=== PATIENT | male | born 1975 | race African-American/Black ===

== ENCOUNTER 2022-05-24 16:07 | Emergency (ER) | payer OTHER ==
[2022-05-24] MEDS ORDERED: Albuterol/Ipratropium 3.0-0.5 MG/3 ML Neb Soln NEB ONE (18:24)
[2022-05-24] MEDS ORDERED: Dexamethasone 10 MG/ML SDV IVPUSH ONE (18:24)
== END 2022-05-24 20:45 | disposition home or self-care (01) ==
LOC: MW.ED 16:07
DX: R07.89 Other chest pain (principal); J30.2 Other seasonal allergic rhinitis
CPT/HCPCS: 93005; 96374; 99284; J1100; 93010; J7620-GY

== ENCOUNTER 2022-12-12 14:24 | Emergency (ER) | payer SELFPAY ==
[2022-12-12] MEDS ORDERED: Sodium Chloride 0.9% 2.5 ML Syringe FLUSH PRN (17:01)
[2022-12-12] MEDS ORDERED: Sodium Chloride 0.9% 10 ML Syringe FLUSH PRN (17:01)
[2022-12-12] MEDS ORDERED: Sodium Chloride 0.9% 1,000 ML IV ONE (17:03)
[2022-12-12] MEDS ORDERED: Ondansetron 4 MG/2 ML SDV IVPUSH ONE (17:17)
[2022-12-12] MEDS: Morphine 4 MG/ML Syringe IVPUSH PRN ×2 (17:38→18:06)
[2022-12-12 17:41] LABS: CARBON DIOXIDE,CO2 24.1 mmol/L (21.0-32.0); POTASSIUM,K 3.6 mmol/L (3.5-5.1)
[2022-12-12] MEDS ORDERED: Iopamidol 755 MG/ML 500 ML Multipack Bottle IVPUSH ONE (18:14)
[2022-12-12] MEDS ORDERED: Lactated Ringers 1,000 ML IV STA (19:34)
[2022-12-12] MEDS ORDERED: Tamsulosin 0.4 MG Cap.ER PO ONE (19:36)
== END 2022-12-12 21:40 | disposition home or self-care (01) ==
LOC: MW.ED 14:24
DX: K52.9 Noninfective gastroenteritis and colitis, unspecified (principal); N13.2 Hydronephrosis with renal and ureteral calculous obstruction
CPT/HCPCS: 36415; 74177; 80053; 81001; 83605; 85025; 85610; 96361; 96374; 96375; 99284; A9270; J2270; J2405; J3490; J7030; J7120; Q9967

== ENCOUNTER 2024-03-21 14:28 | Emergency (ER) | payer BC ==
[2024-03-21] MEDS: Ketorolac 30 MG/ML SDV IM STA (15:59)
== END 2024-03-21 16:42 | disposition home or self-care (01) ==
LOC: MW.ED 14:28
DX: M54.2 Cervicalgia (principal); I10 Essential (primary) hypertension; E11.9 Type 2 diabetes mellitus without complications; Z75.8 Other problems related to medical facilities and other health care; Z79.84 Long term (current) use of oral hypoglycemic drugs
CPT/HCPCS: 96372; 99283; J1885; J3360